=== PATIENT | male | born 1990 | race Caucasian/White ===

== ENCOUNTER 2020-07-17 07:03 | Emergency (ER) | payer SELFPAY ==
[~2020-07-17] VITALS: Ht 182.9 cm; Wt 107.0 kg
--- NOTE | 2020-07-17 07:05 | NUR ---
pt BIB ambulance as a transfer from [place] for CVA evaluation and workup. per report, pt was at work and had a S/O of an inability to walk, R sided deficits and LANDAVERDE. 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 upon admit, pt is A&O x4. physical sx have resolved. pt able to move to [place] on his own. [place] without diffculty. pt has no facial droop, no difficulty breathng speaking or swallowing. pt reports that he still currently has a LANDAVERDE but no loss or change of vision pt also reports that he has had an unintentional weight loss of about 100 lbs over the last month and a half. pt reports that he has not been evaluated for his weight loss per report, pt had a CT and neuro workup at previous facility and is here for MRI. no family at bedside
--- NOTE | 2020-07-17 07:15 | NUR ---
Francis ARTIS has been to bedside for eval pt updated on POC
--- NOTE | 2020-07-17 07:42 | NUR ---
selene Susan [phone]
--- NOTE | 2020-07-17 08:00 | NUR ---
pt is currently in RAD
--- NOTE | 2020-07-17 08:25 | NUR ---
pt ambulated to BR to provide urine sample
--- NOTE | 2020-07-17 08:30 | NUR ---
EKG at bedside
[2020-07-17 09:03] LABS: AMPHETAMINE SCREEN, URINE Negative (Negative); BARBITURATE SCREEN, URINE Negative (Negative); BENZODIAZEPINE SCREEN, URINE Negative (Negative); CANNABINOID SCREEN, URINE Negative (Negative); COCAINE SCREEN, URINE Negative (Negative); METHADONE SCREEN, URINE Negative (Negative); OPIATE SCREEN, URINE Negative (Negative)
--- NOTE | 2020-07-17 09:29 | NUR ---
pt to be admitted pt resting in position of comfort on [facility]. no apparent distress
--- NOTE | 2020-07-17 10:00 | NUR ---
pt sitting up on [place] on cell phone pt in no apparent ditreass at this time. no new c/o pt updated on POC regarding admission, pt is refusing admission. pt states that he cannot be admitted because he cannot afford it, he cannot take time off of work and he does not want to be admitted if nothing was seen on his MRI. Francis ARTIS notified
[2020-07-17 11:09] VITALS: BP 132/78
== END 2020-07-17 11:29 | disposition home or self-care (01) ==
LOC: ED 07:31 → EDIP 08:32 → UNDOADMIN 08:32 → ED 11:29
DX: R41.2 Retrograde amnesia (principal); R41.82 Altered mental status, unspecified; R29.818 Other symptoms and signs involving the nervous system; E87.1 Hypo-osmolality and hyponatremia; F17.210 Nicotine dependence, cigarettes, uncomplicated
CPT/HCPCS: 70551; 80307; 93005; 99285; 99406